=== PATIENT | male | born 1995 ===

== ENCOUNTER 2022-09-21 09:46 | Emergency (ER) | payer MEDICAID ==
[2022-09-21 11:29] LABS: HEMOGLOBIN A1C 5.5 % (<5.7)
[2022-09-21 11:34] LABS: PTT,PARTIAL THROMBOPLSTIN TIME 25.8 SEC (22.0-34.0)
[2022-09-21 11:38] LABS: CHLORIDE,CL 106 mmol/L (98-107); SODIUM,NA 144 mmol/L (136-145)
[2022-09-21 11:47] LABS: ESTIMATED GFR 109 mL/min (>=60)
[2022-09-21 12:48] LABS: AMPHETAMINES,URINE NEGATIVE (NEGATIVE); BARBITURATES,URINE NEGATIVE (NEGATIVE); BENZODIAZEPINE,URINE NEGATIVE (NEGATIVE); MDMA (ECSTASY), URINE NEGATIVE (NEGATIVE); METHADONE,URINE NEGATIVE (NEGATIVE); METHAMPHETAMINES,URINE NEGATIVE (NEGATIVE); OPIATES,URINE NEGATIVE (NEGATIVE); OXYCODONE,URINE NEGATIVE (NEGATIVE); PHENCYCLIDINE,URINE NEGATIVE (NEGATIVE); TCA,URINE NEGATIVE (NEGATIVE)
[2022-09-21] MEDS: Ketorolac 30 MG/ML SDV IM ONE (12:53)
[2022-09-21 13:20] LABS: CORONAVIRUS COVID-19 NAA NEGATIVE (NEGATIVE)
== END 2022-09-21 13:58 | disposition home or self-care (01) ==
LOC: DL.ED 09:46
DX: R53.1 Weakness (principal); R52 Pain, unspecified; Z20.822 Contact with and (suspected) exposure to COVID-19; Z72.0 Tobacco use
CPT/HCPCS: 0240U; 36415; 70450; 72125; 72128; 72131; 80053; 80305; 80307; 81001; 82140; 82607; 82977; 83036; 83605; 83735; 84100; 84443; 85025; 85610; 85651; 85730; 86140; 86618; 86753; 86788; 87086; 96372; 99285; J1885; 99284

== ENCOUNTER 2023-05-18 14:36 | Emergency (ER) | payer MEDICAID ==
[2023-05-18 14:56] LABS: APPEARANCE,URINE CLEAR (CLEAR); BILIRUBIN,URINE NEGATIVE (NEGATIVE); COLOR,URINE YELLOW (YELLOW); GLUCOSE,URINE NEGATIVE (NEGATIVE); KETONES,URINE NEGATIVE (NEGATIVE); LEUKOCYTE ESTERASE,URINE TRACE (NEGATIVE); NITRITE,URINE NEGATIVE (NEGATIVE); OCCULT BLOOD,URINE NEGATIVE (NEGATIVE); PH,URINE 5.5 (5.0-9.0); PROTEIN,URINE NEGATIVE (NEGATIVE); UROBILINOGEN,URINE 0.2 mg/dL (0.2-1.0)
[2023-05-18 15:17] LABS: BACTERIA,URINE FEW /HPF (0-FEW/HPF); EPITHELIAL CELLS,URINE FEW /HPF (NOT SEEN); RBC,URINE 0-5 /HPF (0-5)
[2023-05-18] MEDS ORDERED: Nitrofurantoin Monohydrate/Macrocrystalline 100 MG Cap PO ONE (16:32)
[2023-05-18] MEDS ORDERED: Take Home: Nitrofurantoin Monohydrate/Macrocrystalline 100 MG, 6 Cap Pack PO ONE (16:33)
== END 2023-05-18 16:53 | disposition home or self-care (01) ==
LOC: DL.ED 14:36
DX: N39.0 Urinary tract infection, site not specified (principal); E66.9 Obesity, unspecified; Z68.42 Body mass index [BMI] 45.0-49.9, adult; Z72.0 Tobacco use
CPT/HCPCS: 74176; 81001; 87086; 87088; 87491; 87563; 87591; 99284

== ENCOUNTER 2024-05-11 05:00 | Inpatient (IN) | payer MEDICAID ==
[2024-05-11 05:55] LABS: BASOPHILS PERCENT AUTO 0.2 % (0.0-1.0); EOSINOPHILS PERCENT AUTO 0.1 % (1.0-3.0); HEMATOCRIT 53.7 % (40.0-54.0); HEMOGLOBIN 18.2 g/dL (14.0-18.0); LYMPHOCYTES PERCENT AUTO 8.5 % (20.5-50.1); MEAN CORPUSCULAR HEMOGLOBIN 28.9 pg (27.0-34.0); MEAN CORPUSCULAR HGB CONC 33.9 g/dL (33.0-35.0); MEAN CORPUSCULAR VOLUME 85.4 fL (80-100); MONOCYTES PERCENT AUTO 7.7 % (2-8); NEUTROPHILS PERCENT AUTO 83.5 % (42.2-75.2); PLATELET COUNT,PLT 234 10^3/uL (150-450); RED BLOOD CELL COUNT 6.29 10^6/uL (4.6-6.2); WHITE BLOOD CELL COUNT,WBC 12.9 10^3/uL (5.0-10.0)
[2024-05-11] MEDS: Ondansetron 4 MG/2 ML SDV IV ONE (05:55)
[2024-05-11] MEDS: diphenhydrAMINE 50 MG/ML SDV IVPUSH ONE (06:01)
[2024-05-11] MEDS: Famotidine 20 MG/2 ML SDV IVPUSH ONE (06:02)
[2024-05-11] MEDS: methylPREDNISolone Sodium Succinate 125 MG/2 ML SDV IVPUSH ONE (06:02)
[2024-05-11 06:10] LABS: ALBUMIN 3.5 g/dL (3.4-5.0); ANION GAP 15.8 mEq/L (7-13); BILIRUBIN TOTAL 0.6 mg/dL (0.2-1.0); BUN/CREATININE RATIO 12.5 (No establ ref range); C-REACTIVE PROTEIN 2.88 ng/dL (<=0.50); CALCIUM 8.5 mg/dL (8.5-10.1); CREATININE 1.6 mg/dL (0.70-1.30); EST CRCL DRUG DOSING (CG) 68.74 mL/min; POTASSIUM,K 3.8 mmol/L (3.5-5.1); PROTEIN TOTAL,TP 7.1 g/dL (6.4-8.2)
[2024-05-11] MEDS: Sodium Chloride 0.9% 10 ML Syringe FLUSH PRN (06:15)
[2024-05-11 06:19] LABS: LACTIC ACID 3.5 mmol/L (0.4-2.0)
[2024-05-11] MEDS: Sodium Chloride 0.9% 1,000 ML IV ONE (06:26)
[2024-05-11 06:32] LABS: HEMOGLOBIN A1C 5.4 % (<5.7)
[2024-05-11] MEDS: Vancomycin 2 GM in Sodium Chloride 0.9% 500 ML IV ONE (07:12)
[2024-05-11] MEDS: Piperacillin/Tazobactam 4.5 GM in Sodium Chloride 0.9% 100 ML IV ONE (07:12)
[2024-05-11 07:28] LABS: APPEARANCE,URINE CLEAR (CLEAR); BILIRUBIN,URINE SMALL (NEGATIVE); COLOR,URINE YELLOW (YELLOW); GLUCOSE,URINE NEGATIVE (NEGATIVE); KETONES,URINE NEGATIVE (NEGATIVE); LEUKOCYTE ESTERASE,URINE TRACE (NEGATIVE); NITRITE,URINE NEGATIVE (NEGATIVE); OCCULT BLOOD,URINE NEGATIVE (NEGATIVE); PH,URINE 5.5 (5.0-9.0); PROTEIN,URINE 30 (NEGATIVE); UROBILINOGEN,URINE 0.2 mg/dL (0.2-1.0)
[2024-05-11 07:38] LABS: BACTERIA,URINE MODERATE /HPF (0-FEW/HPF); EPITHELIAL CELLS,URINE FEW /HPF (NOT SEEN); MUCUS,URINE MODERATE /LPF (NOT SEEN); RBC,URINE 0-5 /HPF (0-5); WBC,URINE 20-30 /HPF (0-5/HPF)
[2024-05-11] MEDS: Sodium Chloride 0.9% 1,000 ML IV SCH (07:42)
[2024-05-11] MEDS ORDERED: Acetaminophen 325 MG Tab PO PRN (11:56)
[2024-05-11] MEDS ORDERED: hydrALAZINE 20 MG/ML SDV IVPUSH PRN (11:56)
[2024-05-11] MEDS ORDERED: Albuterol/Ipratropium 3.0-0.5 MG/3 ML Neb Soln NEB PRN (11:56)
[2024-05-11] MEDS ORDERED: Magnesium Hydroxide 400 MG/5 ML Susp 30 ML Cup PO PRN (11:56)
[2024-05-11] MEDS ORDERED: Ondansetron 4 MG/2 ML SDV IVPUSH PRN (11:56)
[2024-05-11] MEDS ORDERED: Metoprolol Tartrate 5 MG/5 ML SDV IVPUSH PRN (11:56)
[2024-05-11] MEDS ORDERED: Sennosides/Docusate Sodium 50-8.6 MG Tab PO PRN (11:56)
[2024-05-11] MEDS ORDERED: Temazepam 15 MG Cap PO PRN (11:56)
[2024-05-11] MEDS ORDERED: Ketorolac 30 MG/ML SDV IVPUSH PRN (11:56)
[2024-05-11] MEDS ORDERED: Polyethylene Glycol 3350 Powder 17 GM Packet PO PRN (11:56)
[2024-05-11] MEDS: Piperacillin/Tazobactam 4.5 GM in Sodium Chloride 0.9% 100 ML IV SCH (14:53)
[2024-05-11 17:28] LABS: AMPHETAMINES,URINE NEGATIVE (NEGATIVE); BARBITURATES,URINE NEGATIVE (NEGATIVE); BENZODIAZEPINE,URINE NEGATIVE (NEGATIVE); MDMA (ECSTASY), URINE NEGATIVE (NEGATIVE); METHADONE,URINE NEGATIVE (NEGATIVE); METHAMPHETAMINES,URINE NEGATIVE (NEGATIVE); OPIATES,URINE NEGATIVE (NEGATIVE); OXYCODONE,URINE NEGATIVE (NEGATIVE); PHENCYCLIDINE,URINE NEGATIVE (NEGATIVE); TCA,URINE NEGATIVE (NEGATIVE)
[2024-05-11] MEDS: Vancomycin 2.5 GM in Sodium Chloride 0.9% 500 ML IV SCH (18:03)
[2024-05-11] MEDS: diphenhydrAMINE 25 MG Tab PO SCH (22:02)
[2024-05-11] MEDS: Famotidine 20 MG Tab PO SCH (22:02)
[2024-05-11] MEDS: Saccharomyces Boulardii (Probiotic) 250 MG Cap PO SCH (22:02)
[2024-05-11] MEDS: Dexamethasone 4 MG Tab PO SCH (22:02)
[2024-05-12 06:56] LABS: BASOPHILS PERCENT AUTO 0.2 % (0.0-1.0); EOSINOPHILS PERCENT AUTO 0.2 % (1.0-3.0); HEMATOCRIT 41.9 % (40.0-54.0); HEMOGLOBIN 13.7 g/dL (14.0-18.0); LYMPHOCYTES PERCENT AUTO 12.6 % (20.5-50.1); MEAN CORPUSCULAR HEMOGLOBIN 29.1 pg (27.0-34.0); MEAN CORPUSCULAR HGB CONC 32.7 g/dL (33.0-35.0); MEAN CORPUSCULAR VOLUME 89.1 fL (80-100); MONOCYTES PERCENT AUTO 4.4 % (2-8); NEUTROPHILS PERCENT AUTO 82.6 % (42.2-75.2); PLATELET COUNT,PLT 203 10^3/uL (150-450); WHITE BLOOD CELL COUNT,WBC 9.3 10^3/uL (5.0-10.0)
[2024-05-12 07:02] LABS: BILIRUBIN TOTAL 0.2 mg/dL (0.2-1.0); BUN/CREATININE RATIO 12.1 (No establ ref range); C-REACTIVE PROTEIN 3.93 ng/dL (<=0.50); CALCIUM 7.7 mg/dL (8.5-10.1); CREATININE 1.07 mg/dL (0.70-1.30); EST CRCL DRUG DOSING (CG) 102.78 mL/min; MAGNESIUM 1.9 mg/dL (1.8-2.4); PROTEIN TOTAL,TP 6.3 g/dL (6.4-8.2)
[2024-05-12 07:05] LABS: A/G RATIO 0.91
[2024-05-12] MEDS: VANCOmycin 1.5 GM/300 ML 1.5 GM in Premix Bag 1 BAG IV SCH (08:27)
[2024-05-13 06:20] LABS: BASOPHILS PERCENT AUTO 0.2 % (0.0-1.0); EOSINOPHILS PERCENT AUTO 0.9 % (1.0-3.0); HEMATOCRIT 40.8 % (40.0-54.0); HEMOGLOBIN 13.3 g/dL (14.0-18.0); LYMPHOCYTES PERCENT AUTO 20.5 % (20.5-50.1); MEAN CORPUSCULAR HEMOGLOBIN 29.2 pg (27.0-34.0); MEAN CORPUSCULAR HGB CONC 32.6 g/dL (33.0-35.0); MEAN CORPUSCULAR VOLUME 89.7 fL (80-100); MONOCYTES PERCENT AUTO 8.3 % (2-8); NEUTROPHILS PERCENT AUTO 70.1 % (42.2-75.2); PLATELET COUNT,PLT 216 10^3/uL (150-450); RED BLOOD CELL COUNT 4.55 10^6/uL (4.6-6.2); WHITE BLOOD CELL COUNT,WBC 8.7 10^3/uL (5.0-10.0)
[2024-05-13 06:56] LABS: ANION GAP 12.7 mEq/L (7-13); BILIRUBIN TOTAL 0.2 mg/dL (0.2-1.0); BUN/CREATININE RATIO 10.2 (No establ ref range); C-REACTIVE PROTEIN 1.03 ng/dL (<=0.50); CALCIUM 7.8 mg/dL (8.5-10.1); CREATININE 1.08 mg/dL (0.70-1.30); EST CRCL DRUG DOSING (CG) 101.83 mL/min; MAGNESIUM 2.1 mg/dL (1.8-2.4); POTASSIUM,K 3.7 mmol/L (3.5-5.1); PROTEIN TOTAL,TP 6.2 g/dL (6.4-8.2)
[2024-05-13 06:59] LABS: A/G RATIO 0.94
== END 2024-05-13 09:36 | disposition home or self-care (01) | DRG 915 ==
LOC: DL.ED 05:00 → DL.MS 07:57 → DL.ED 08:25
PROVIDERS: ADMIT Internal Medicine; ATTEND Internal Medicine
DX: T78.40XA Allergy, unspecified, initial encounter (principal); J96.01 Acute respiratory failure with hypoxia; N17.9 Acute kidney failure, unspecified; E87.20 Acidosis, unspecified; N39.0 Urinary tract infection, site not specified; Z68.42 Body mass index [BMI] 45.0-49.9, adult; R65.10 Systemic inflammatory response syndrome (SIRS) of non-infectious origin without acute organ dysfunction; G47.30 Sleep apnea, unspecified; L50.9 Urticaria, unspecified; E86.0 Dehydration; J45.990 Exercise induced bronchospasm; G47.33 Obstructive sleep apnea (adult) (pediatric); E66.01 Morbid (severe) obesity due to excess calories; I95.9 Hypotension, unspecified; R73.9 Hyperglycemia, unspecified
CPT/HCPCS: 36415; 80053; 80202; 80305-QW; 81001; 83036; 83605; 83690; 83735; 84145; 85025; 86140; 87040; 87081; 87086; 87430; 87804; 96361; 96365; 96368; 96375; 99284-25; 99285; A9270-GY; J1200; J2405; J2543; J2919; J3370; J3490; J7030; J7040; J8540; U0002